=== PATIENT | female | born 1995 | race Asian ===

== ENCOUNTER 2018-02-04 23:10 | Emergency (ER) | payer MEDICAID ==
[~2018-02-04] VITALS: Ht 157.5 cm; Wt 75.0 kg
[2018-02-04 23:18] VITALS: Ht 157.5 cm; Wt 75.0 kg
[2018-02-05 01:02] VITALS: BP 123/53
== END 2018-02-05 01:02 | disposition home or self-care (01) ==
LOC: ED 23:10
DX: S91.202A Unspecified open wound of left great toe with damage to nail, initial encounter (principal); W22.8XXA Striking against or struck by other objects, initial encounter; Y93.89 Activity, other specified; Y92.89 Other specified places as the place of occurrence of the external cause; Y99.8 Other external cause status